=== PATIENT | female | born 1980 | race Caucasian/White ===

== ENCOUNTER 2024-02-17 11:18 | Emergency (ER) | payer OTHER, BC ==
[2024-02-17 11:41] VITALS: RESP 16; TEMP 99; BMI 19.1
[2024-02-17 12:15] LABS: HCG,QUALITATIVE URINE Negative
[2024-02-17] MEDS ORDERED: ONDANSETRON 4 MG/2 ML VIAL ONE (12:22)
[2024-02-17] MEDS: ONDANSETRON 4 MG/2 ML VIAL IVPUSH ONE (12:30)
[2024-02-17] MEDS: SODIUM CHLORIDE 0.9% 500 ML INFUS.BAG IV ONE (12:30)
[2024-02-17 12:45] LABS: HEMATOCRIT 32.4 % (32.4-45.2); HEMOGLOBIN 10.3 G/dL (10.7-15.3); MCH 24.8 pg (25.7-33.7); MCHC 31.7 g/dl (32.0-36.0); MEAN CELL VOLUME 78.5 fl (80-96); PLATELET COUNT 288.2 10^3/uL (134-434); RBC 4.13 10^6/uL (3.60-5.2); WHITE BLOOD COUNT 5.1 10^3/uL (4.0-10.8)
[2024-02-17 13:01] LABS: ALBUMIN 4.4 g/dl (3.4-5.0); ALK PHOS 41 U/L (45-117); ANION GAP 8 mmol/L (4-13); BILIRUBIN,TOTAL 0.4 mg/dl (0.2-1); CALCIUM 9.2 mg/dl (8.5-10.1); CHLORIDE 102 mmol/L (98-107); CO2 25 mmol/L (21-32); CREATININE 0.6 mg/dl (0.6-1.3); GLUCOSE,RANDOM 101 mg/dl (74-106); POTASSIUM 3.7 mmol/L (3.5-5.1); SGOT/AST 15 U/L (15-37); SGPT/ALT 17 U/L (7-52); SODIUM 135 mmol/L (136-145); TOT PROT 6.9 g/dl (6.4-8.2)
[2024-02-17 13:09] LABS: PLATELET ESTIMATE ADEQUATE
[2024-02-17 14:15] VITALS: BP 115/67; PULSE 71
== END 2024-02-17 14:22 | disposition home or self-care (01) ==
LOC: FER 11:18
PROC: 3E033GC Introduction of Other Therapeutic Substance into Peripheral Vein, Percutaneous Approach (ICD-10-PCS; principal; 2024-02-17)
DX: R55 Syncope and collapse (principal); D64.9 Anemia, unspecified; R11.0 Nausea; R42 Dizziness and giddiness; R53.1 Weakness; R68.2 Dry mouth, unspecified; H53.489 Generalized contraction of visual field, unspecified eye
CPT/HCPCS: 36415; 70450-TC; 71046-TC-FY; 80053; 81003; 83735; 84439; 84443; 84481; 84484; 84703; 85027; 87086; 93005; 99285-25